=== PATIENT | female | born 1935 | race Caucasian/White ===

== ENCOUNTER 2024-09-26 17:08 | Inpatient (IN) ==
[2024-09-26] MEDS: metroNIDAZOLE 500 MG/100 ML BAG IV ONE (18:25)
[2024-09-26] MEDS: CEFEPIME 1 GM VIAL IV ONE (18:25)
[2024-09-26] MEDS: DEXTROSE 5%-1/2NS W/20MEQ KCL 1,000 ML IV SCH (20:23)
[2024-09-26] MEDS: CIPROFLOXACIN 400 MG/200 ML BAG IV SCH (23:18)
[2024-09-26] MEDS: metroNIDAZOLE 500 MG/100 ML BAG IV SCH (23:20)
[2024-09-26] MEDS: metroNIDAZOLE 100 ML IV ONE (23:20)
[2024-09-26] MEDS: CIPROFLOXACIN 400 MG/200 ML BAG IV ONE (23:20)
[2024-09-27 07:05] LABS: Hematocrit 47.1 % (34.1-44.9); Hemoglobin 15.7 g/dL (11.2-15.7); Mean Corpuscular HGB Conc 33.3 g/dL (31.0-36.0); Mean Platelet Volume 9.7 fL (8.8-12.5); Platelet Count 210 K/mcL (140-440); RBC 4.96 M/mcL (3.59-5.38); Red Cell Distribution Width 12.9 % (11.5-14.5); WBC 6.8 K/mcL (4.5-11.0)
[2024-09-27 07:40] LABS: ALT/SGPT 18 U/L (<40); AST/SGOT 27 U/L (<32); Albumin 3.8 gm/dL (3.2-5.2); Albumin/Globulin Ratio 1.7 (1.0-2.3); Alkaline Phosphatase 95 U/L (39-117); Bilirubin,Total 0.7 mg/dL (0.1-1.0); Blood Urea Nitrogen 15 mg/dL (8-23); Calcium 9.2 mg/dL (8.6-10.4); Carbon Dioxide 27 mmol/L (22-30); Chloride 100 mmol/L (96-108); Globulin 2.2 gm/dL (2.2-3.7); Glomerular Filtration Rate 66; Glucose 120 mg/dL (70-105); Potassium 3.2 mmol/L (3.3-5.1); Sodium 139 mmol/L (133-145)
[2024-09-27] MEDS: CIPROFLOXACIN 400 MG/200 ML BAG IV SCH (08:44)
[2024-09-27] MEDS: BENZOCAINE/MENTHOL 1 LOZENGE PO PRN (09:01)
[2024-09-27] MEDS: ACETAMINOPHEN 650 MG/65 ML BAG IV PRN (10:10)
[2024-09-27] MEDS: HYDROmorphone 0.5 MG/0.5 ML SYRINGE IV PRN (10:31)
[2024-09-27] MEDS: PHENOL/SODIUM PHENOLATE 5 SPRAY BOTTLE 180ML SSP PRN (13:30)
[2024-09-27] MEDS: metroNIDAZOLE 500 MG/100 ML BAG IV SCH (13:57)
[2024-09-27] MEDS ORDERED: ONDANSETRON 4 MG/2 ML VIAL IV PRN (22:04)
[2024-09-27] MEDS: PROCHLORPERAZINE 10 MG/2 ML VIAL IV PRN (22:41)
[2024-09-28 06:04] LABS: Hematocrit 45.2 % (34.1-44.9); Mean Cell Volume 94.2 fL (80.0-100.0); Mean Corpuscular HGB Conc 33.2 g/dL (31.0-36.0); Platelet Count 198 K/mcL (140-440); Red Cell Distribution Width 12.8 % (11.5-14.5); WBC 6.9 K/mcL (4.5-11.0)
[2024-09-28 06:45] LABS: Blood Urea Nitrogen 13 mg/dL (8-23); Calcium 9.2 mg/dL (8.6-10.4); Carbon Dioxide 32 mmol/L (22-30); Chloride 100 mmol/L (96-108); Glomerular Filtration Rate 66; Glucose 129 mg/dL (70-105); Potassium 3.7 mmol/L (3.3-5.1); Sodium 140 mmol/L (133-145)
[2024-09-28] MEDS ORDERED: KETAMINE 50 MG/ML Syringe IV ONE (08:53)
[2024-09-28] MEDS ORDERED: PROPOFOL 200 MG/20 ML VIAL IV ONE (08:53)
[2024-09-28] MEDS ORDERED: fentaNYL 100 MCG/2 ML VIAL ONE (08:53)
[2024-09-28] MEDS ORDERED: DEXAMETHASONE 10 MG/ML VIAL ONE (08:54)
[2024-09-28] MEDS ORDERED: ONDANSETRON 4 MG/2 ML VIAL ONE (08:54)
[2024-09-28] MEDS ORDERED: LIDOCAINE 2% PF 5 ML VIAL ONE (08:54)
[2024-09-28] MEDS ORDERED: MAGNESIUM SULFATE 2 GM/50 ML BAG IV ONE (08:54)
[2024-09-28] MEDS ORDERED: ROCURONIUM 10 MG/ML ML IV ONE (08:54)
[2024-09-28] MEDS ORDERED: ePHEDrine 50 MG/5 ML SYRINGE (ANEST) IV ONE (10:11)
[2024-09-28] MEDS ORDERED: ONDANSETRON 4 MG/2 ML VIAL IV PRN (11:36)
[2024-09-28] MEDS ORDERED: NALOXONE HCL 0.4 MG/ML VIAL IV PRN (11:36)
[2024-09-28] MEDS ORDERED: HYDROmorphone 0.5 MG/0.5 ML SYRINGE IV PRN (11:36)
[2024-09-28] MEDS ORDERED: IPRATROPIUM/ALBUTEROL 3 ML AMPUL.NEB NEB PRN (11:36)
[2024-09-28] MEDS ORDERED: MEPERIDINE 25 MG/ML VIAL IV PRN (11:36)
[2024-09-28] MEDS ORDERED: diphenhydrAMINE 50 MG/ML VIAL IV PRN (11:36)
[2024-09-28] MEDS ORDERED: LACTATED RINGERS 250 ML IV PRN (11:36)
[2024-09-28] MEDS ORDERED: SUGAMMADEX SODIUM 200 MG/2 ML VIAL IV ONE (11:39)
[2024-09-28] MEDS: BACITRACIN TOPICAL OINT 15 GM TUBE TOPICAL ONE (11:56)
[2024-09-28] MEDS: ACETAMINOPHEN 1,000 MG/100 ML BAG IV ONE (12:15)
[2024-09-28] MEDS: fentaNYL 100 MCG/2 ML VIAL IV PRN (12:41)
[2024-09-28] MEDS: LACTATED RINGERS 1,000 ML IV SCH (13:14)
[2024-09-29 06:17] LABS: Hematocrit 41.1 % (34.1-44.9); Hemoglobin 13.7 g/dL (11.2-15.7); Mean Cell Volume 94.1 fL (80.0-100.0); Mean Corpuscular HGB Conc 33.3 g/dL (31.0-36.0); Mean Platelet Volume 9.2 fL (8.8-12.5); Platelet Count 200 K/mcL (140-440); RBC 4.37 M/mcL (3.59-5.38); Red Cell Distribution Width 12.8 % (11.5-14.5); WBC 9.7 K/mcL (4.5-11.0)
[2024-09-29 06:50] LABS: Blood Urea Nitrogen 10 mg/dL (8-23); Carbon Dioxide 29 mmol/L (22-30); Chloride 101 mmol/L (96-108); Glomerular Filtration Rate 81; Glucose 134 mg/dL (70-105); Potassium 3.6 mmol/L (3.3-5.1); Sodium 139 mmol/L (133-145)
[2024-09-30 06:38] LABS: Blood Urea Nitrogen 6 mg/dL (8-23); Calcium 9.4 mg/dL (8.6-10.4); Carbon Dioxide 28 mmol/L (22-30); Chloride 102 mmol/L (96-108); Glomerular Filtration Rate 86; Glucose 123 mg/dL (70-105); Potassium 3.9 mmol/L (3.3-5.1); Sodium 138 mmol/L (133-145)
[2024-09-30 06:43] LABS: Hematocrit 43.3 % (34.1-44.9); Hemoglobin 14.1 g/dL (11.2-15.7); Mean Cell Volume 95.6 fL (80.0-100.0); Mean Corpuscular HGB Conc 32.6 g/dL (31.0-36.0); Mean Platelet Volume 9.1 fL (8.8-12.5); Platelet Count 214 K/mcL (140-440); RBC 4.53 M/mcL (3.59-5.38); Red Cell Distribution Width 12.9 % (11.5-14.5); WBC 9.5 K/mcL (4.5-11.0)
[2024-09-30] MEDS: METOCLOPRAMIDE 10 MG/2 ML VIAL IV SCH (17:26)
[2024-10-01] MEDS: DEXTROSE 5%-1/2NS W/20MEQ KCL 1,000 ML IV SCH (02:22)
[2024-10-01 06:01] LABS: Hematocrit 43.5 % (34.1-44.9); Hemoglobin 14.3 g/dL (11.2-15.7); Mean Cell Volume 94.4 fL (80.0-100.0); Mean Corpuscular HGB Conc 32.9 g/dL (31.0-36.0); Mean Platelet Volume 8.9 fL (8.8-12.5); Platelet Count 223 K/mcL (140-440); RBC 4.61 M/mcL (3.59-5.38); WBC 9.8 K/mcL (4.5-11.0)
[2024-10-01 06:31] LABS: Blood Urea Nitrogen 7 mg/dL (8-23); Calcium 9.3 mg/dL (8.6-10.4); Carbon Dioxide 27 mmol/L (22-30); Chloride 101 mmol/L (96-108); Glomerular Filtration Rate 81; Glucose 146 mg/dL (70-105); Potassium 3.9 mmol/L (3.3-5.1); Sodium 137 mmol/L (133-145)
[2024-10-01] MEDS: PANTOPRAZOLE 40 MG VIAL IV SCH (08:19)
[2024-10-02 05:58] LABS: Hematocrit 42.3 % (34.1-44.9); Mean Cell Volume 95.3 fL (80.0-100.0); Mean Corpuscular HGB Conc 33.1 g/dL (31.0-36.0); Mean Platelet Volume 8.8 fL (8.8-12.5); Platelet Count 210 K/mcL (140-440); RBC 4.44 M/mcL (3.59-5.38); WBC 7.4 K/mcL (4.5-11.0)
[2024-10-02 06:37] LABS: Blood Urea Nitrogen 7 mg/dL (8-23); Calcium 8.9 mg/dL (8.6-10.4); Carbon Dioxide 24 mmol/L (22-30); Chloride 108 mmol/L (96-108); Glomerular Filtration Rate 77; Glucose 108 mg/dL (70-105); Potassium 3.7 mmol/L (3.3-5.1); Sodium 140 mmol/L (133-145)
[2024-10-02] MEDS: CINACALCET 30 MG TABLET PO SCH (15:46)
[2024-10-02] MEDS: MIRTAZAPINE 15 MG TABLET PO SCH (15:47)
[2024-10-03 06:44] LABS: Blood Urea Nitrogen 4 mg/dL (8-23); Carbon Dioxide 22 mmol/L (22-30); Chloride 106 mmol/L (96-108); Glomerular Filtration Rate 77; Glucose 123 mg/dL (70-105); Potassium 3.4 mmol/L (3.3-5.1); Sodium 140 mmol/L (133-145)
[2024-10-03 08:28] LABS: Basophils # (Auto) 0.02 K/mcL (0.00-0.30); Basophils % (Auto) 0.2 % (0.0-2.0); Eosinophils # (Auto) 0.06 K/mcL (0.00-0.70); Eosinophils % (Auto) 0.6 % (0.0-7.0); Hematocrit 46.6 % (34.1-44.9); Hemoglobin 15.4 g/dL (11.2-15.7); Lymphocytes # (Auto) 1.07 K/mcL (1.50-4.80); Lymphocytes % (Auto) 11.1 % (15.5-49.0); Mean Cell Volume 93.6 fL (80.0-100.0); Mean Platelet Volume 9.1 fL (8.8-12.5); Monocytes # (Auto) 0.87 K/mcL (0.10-0.90); Neutrophils % (Auto) 78.8 % (38.0-78.0); Platelet Count 278 K/mcL (140-440); RBC 4.98 M/mcL (3.59-5.38); Red Cell Distribution Width 13.1 % (11.5-14.5); WBC 9.7 K/mcL (4.5-11.0)
[2024-10-04 06:25] LABS: Basophils # (Auto) 0.01 K/mcL (0.00-0.30); Basophils % (Auto) 0.1 % (0.0-2.0); Eosinophils # (Auto) 0.05 K/mcL (0.00-0.70); Eosinophils % (Auto) 0.5 % (0.0-7.0); Hematocrit 43.6 % (34.1-44.9); Hemoglobin 14.6 g/dL (11.2-15.7); Lymphocytes # (Auto) 1.04 K/mcL (1.50-4.80); Lymphocytes % (Auto) 10.8 % (15.5-49.0); Mean Cell Volume 93.6 fL (80.0-100.0); Mean Corpuscular HGB Conc 33.5 g/dL (31.0-36.0); Mean Platelet Volume 8.5 fL (8.8-12.5); Monocytes # (Auto) 0.91 K/mcL (0.10-0.90); Monocytes % (Auto) 9.5 % (1.0-12.0); Neutrophils % (Auto) 78.6 % (38.0-78.0); Platelet Count 216 K/mcL (140-440); RBC 4.66 M/mcL (3.59-5.38); Red Cell Distribution Width 13.2 % (11.5-14.5); WBC 9.6 K/mcL (4.5-11.0)
[2024-10-04 06:49] LABS: Blood Urea Nitrogen 6 mg/dL (8-23); Carbon Dioxide 22 mmol/L (22-30); Chloride 107 mmol/L (96-108); Glomerular Filtration Rate 66; Glucose 84 mg/dL (70-105); Potassium 3.1 mmol/L (3.3-5.1); Sodium 144 mmol/L (133-145)
[2024-10-04] MEDS ORDERED: ZOLPIDEM 5 MG TABLET PO PRN (11:43)
[2024-10-04] MEDS ORDERED: LORazepam 2 MG/ML VIAL IV PRN (11:44)
[2024-10-04] MEDS ORDERED: METOCLOPRAMIDE 10 MG/2 ML VIAL IV PRN (11:45)
[2024-10-04] MEDS ORDERED: IOPAMIDOL 100 ML BOTTLE IV ONE (15:11)
[2024-10-04] MEDS: APIXABAN 5 MG TABLET PO ONE (17:00)
[2024-10-04] MEDS: POTASSIUM CHLORIDE 20 MEQ TABLET PO ONE (17:01)
[2024-10-04] MEDS: DEXTROSE 5%-NS W/20MEQ KCL 1,000 ML IV SCH (17:24)
[2024-10-04] MEDS: APIXABAN 5 MG TABLET PO SCH (17:37)
[2024-10-05 07:33] LABS: Blood Urea Nitrogen 7 mg/dL (8-23); Calcium 8.5 mg/dL (8.6-10.4); Carbon Dioxide 22 mmol/L (22-30); Chloride 111 mmol/L (96-108); Glomerular Filtration Rate 66; Glucose 114 mg/dL (70-105); Potassium 2.9 mmol/L (3.3-5.1); Sodium 145 mmol/L (133-145)
[2024-10-05] MEDS: APIXABAN 5 MG TABLET PO SCH (08:02)
[2024-10-05] MEDS: POTASSIUM CHLORIDE 20 MEQ TABLET PO SCH (10:28)
== END 2024-10-05 14:33 | disposition home or self-care (01) | DRG 329 ==
LOC: ED 17:08 → MEDSUR 19:53
PROVIDERS: ADMIT Surgery Surgical Critical Care; ATTEND Surgery Surgical Critical Care

== ENCOUNTER 2024-10-06 02:51 | Observation (INO) ==
[2024-10-06] MEDS ORDERED: IOPAMIDOL 100 ML BOTTLE IV ONE (02:52)
[2024-10-06 03:15] LABS: Basophils # (Auto) 0.01 K/mcL (0.00-0.30); Basophils % (Auto) 0.1 % (0.0-2.0); Eosinophils # (Auto) 0.11 K/mcL (0.00-0.70); Eosinophils % (Auto) 1.1 % (0.0-7.0); Hematocrit 45.3 % (34.1-44.9); Hemoglobin 14.9 g/dL (11.2-15.7); Lymphocytes # (Auto) 1.55 K/mcL (1.50-4.80); Lymphocytes % (Auto) 15.5 % (15.5-49.0); Mean Corpuscular HGB Conc 32.9 g/dL (31.0-36.0); Mean Platelet Volume 8.5 fL (8.8-12.5); Monocytes # (Auto) 0.77 K/mcL (0.10-0.90); Monocytes % (Auto) 7.7 % (1.0-12.0); Neutrophils % (Auto) 75.3 % (38.0-78.0); Platelet Count 237 K/mcL (140-440); RBC 4.77 M/mcL (3.59-5.38); Red Cell Distribution Width 13.6 % (11.5-14.5)
[2024-10-06 03:51] LABS: ALT/SGPT 14 U/L (<40); AST/SGOT 20 U/L (<32); Albumin 3.7 gm/dL (3.2-5.2); Albumin/Globulin Ratio 1.9 (1.0-2.3); Alkaline Phosphatase 75 U/L (39-117); Bilirubin,Total 0.7 mg/dL (0.1-1.0); Blood Urea Nitrogen 12 mg/dL (8-23); Calcium 9.4 mg/dL (8.6-10.4); Carbon Dioxide 20 mmol/L (22-30); Chloride 113 mmol/L (96-108); Globulin 1.9 gm/dL (2.2-3.7); Glomerular Filtration Rate 66; Glucose 80 mg/dL (70-105); Potassium 3.3 mmol/L (3.3-5.1); Sodium 149 mmol/L (133-145)
[2024-10-06] MEDS ORDERED: HYDROcodone/APAP 5/325MG TABLET PO PRN (06:59)
[2024-10-06] MEDS ORDERED: METOCLOPRAMIDE 10 MG/2 ML VIAL IV PRN (07:01)
[2024-10-06] MEDS ORDERED: ZOLPIDEM 5 MG TABLET PO PRN (07:03)
[2024-10-06 07:42] LABS: Blood Urea Nitrogen 12 mg/dL (8-23); Calcium 9.3 mg/dL (8.6-10.4); Carbon Dioxide 21 mmol/L (22-30); Chloride 111 mmol/L (96-108); Glomerular Filtration Rate 66; Glucose 75 mg/dL (70-105); Potassium 3.1 mmol/L (3.3-5.1); Sodium 148 mmol/L (133-145)
[2024-10-06] MEDS: LEVOFLOXACIN 250 MG TABLET PO SCH (09:41)
[2024-10-06] MEDS: APIXABAN 5 MG TABLET PO SCH (09:41)
[2024-10-06] MEDS: DEXTROSE 5%-NS W/20MEQ KCL 1,000 ML IV SCH (09:41)
[2024-10-07] MEDS: LORazepam 2 MG/ML VIAL IV PRN (03:42)
[2024-10-07 07:05] LABS: Hematocrit 40.5 % (34.1-44.9); Hemoglobin 13.4 g/dL (11.2-15.7); Mean Cell Volume 94.4 fL (80.0-100.0); Mean Corpuscular HGB Conc 33.1 g/dL (31.0-36.0); Mean Platelet Volume 8.7 fL (8.8-12.5); Platelet Count 263 K/mcL (140-440); RBC 4.29 M/mcL (3.59-5.38); Red Cell Distribution Width 13.7 % (11.5-14.5); WBC 9.8 K/mcL (4.5-11.0)
== END 2024-10-08 14:25 ==
LOC: ED 02:51 → MEDSUR 02:51
PROVIDERS: ADMIT Family Medicine Adult Medicine; ATTEND Family Medicine Adult Medicine